=== PATIENT | male | born 1980 | race Caucasian/White ===

== ENCOUNTER 2017-03-25 09:41 | Emergency (ER) | payer OTHER ==
[~2017-03-25] VITALS: Ht 167.6 cm; Wt 89.6 kg
[~2017-03-25 09:41] MED LIST: APAP/HYDROCODON1 T13 PO; PRILOSEC40 MG PO; ZOC20 PO; ZOFRAN ODT8 MG PO
[2017-03-25 10:22] VITALS: BP 109/82
== END 2017-03-25 11:46 | disposition left against medical advice (07) ==
LOC: ED 09:41
DX: Z53.21 Procedure and treatment not carried out due to patient leaving prior to being seen by health care provider (principal)

== ENCOUNTER 2017-04-03 06:24 | Emergency (ER) | payer OTHER ==
[~2017-04-03] VITALS: Ht 167.6 cm; Wt 89.3 kg
[2017-04-03 07:27] LABS: BASOPHIL % 0.5 % (0-2); PLATELET COUNT 232 x10^3mcL (130-400); RED CELL DISTRIBUTION WIDTH 13.3 % (11.5-14.5)
[2017-04-03 07:31] LABS: CALCIUM 8.9 mg/dL (8.5-10.1); CARBON DIOXIDE 25.6 mmol/L (21-32); CHLORIDE SERUM 106 mmol/L (98-107); CREATININE SERUM 0.8 mg/dL (0.7-1.3); GFR1 > 60 mL/min; GLUCOSE SERUM 100 mg/dL (74-106); SODIUM SERUM 141 mmol/L (136-145)
[2017-04-03 07:35] LABS: ALBUMIN 3.8 g/dL (3.4-5.0); ALKALINE PHOSPHATASE 92 U/L (46-116); ALT/SGPT 30 U/L (16-63); AMYLASE 51 U/L (25-115); AST/SGOT 12 U/L (15-37); BILIRUBIN TOTAL 0.42 mg/dL (0.20-1.00); LIPASE 210 IU/L (73-393); TOTAL PROTEIN, SERUM 7.4 g/dL (6.4-8.2)
[2017-04-03 07:52] LABS: microscopic required? YES; urine erythrocyte 1+ (NEGATIVE)
[2017-04-03 10:53] VITALS: BP 104/63
== END 2017-04-03 10:53 | disposition home or self-care (01) ==
LOC: ED 06:24
PROVIDERS: Emergency Medicine
DX: R10.11 Right upper quadrant pain (principal); K64.4 Residual hemorrhoidal skin tags; Z87.19 Personal history of other diseases of the digestive system
CPT/HCPCS: J1170; J2405; Q0092

== ENCOUNTER 2017-11-13 06:42 | Emergency (ER) | payer OTHER ==
[~2017-11-13] VITALS: Ht 167.6 cm; Wt 82.7 kg
[2017-11-13 07:03] VITALS: Ht 167.6 cm; Wt 82.7 kg
[2017-11-13 08:56] VITALS: BP 138/93
== END 2017-11-13 08:56 | disposition home or self-care (01) ==
LOC: ED 06:42
DX: S46.912A Strain of unspecified muscle, fascia and tendon at shoulder and upper arm level, left arm, initial encounter (principal); Z87.19 Personal history of other diseases of the digestive system; V49.40XA Driver injured in collision with unspecified motor vehicles in traffic accident, initial encounter; Y93.I9 Activity, other involving external motion; Y92.410 Unspecified street and highway as the place of occurrence of the external cause; Y99.8 Other external cause status
CPT/HCPCS: J1885

== ENCOUNTER 2017-12-15 18:02 | Emergency (ER) | payer OTHER ==
[2017-12-15 19:03] LABS: BASOPHIL % 0.8 % (0-2); PLATELET COUNT 238 x10^3mcL (130-400); RED CELL DISTRIBUTION WIDTH 14.1 % (11.5-14.5)
[2017-12-15 19:08] LABS: CALCIUM 9.1 mg/dL (8.5-10.1); CARBON DIOXIDE 29.5 mmol/L (21-32); CHLORIDE SERUM 106 mmol/L (98-107); CREATININE SERUM 1.1 mg/dL (0.7-1.3); GFR1 > 60 mL/min; GLUCOSE SERUM 106 mg/dL (74-106); POTASSIUM SERUM 3.9 mmol/L (3.5-5.1); SODIUM SERUM 143 mmol/L (136-145)
[2017-12-15 19:12] LABS: ALBUMIN 3.8 g/dL (3.4-5.0); ALKALINE PHOSPHATASE 87 U/L (46-116); ALT/SGPT 37 U/L (16-63); AMYLASE 88 U/L (25-115); AST/SGOT 16 U/L (15-37); BILIRUBIN TOTAL 0.3 mg/dL (0.20-1.00); LIPASE 393 IU/L (73-393); TOTAL PROTEIN, SERUM 7.4 g/dL (6.4-8.2)
[2017-12-15 20:17] VITALS: BP 121/74
== END 2017-12-15 20:17 | disposition home or self-care (01) ==
LOC: ED 18:02
PROVIDERS: Emergency Medicine
DX: K50.90 Crohn's disease, unspecified, without complications (principal); Z87.19 Personal history of other diseases of the digestive system
CPT/HCPCS: 83880; J1885; J2930

== ENCOUNTER 2018-04-16 08:04 | Emergency (ER) | payer OTHER ==
[~2018-04-16] VITALS: Ht 167.6 cm; Wt 77.1 kg
[2018-04-16 08:10] VITALS: Ht 167.6 cm; Wt 77.1 kg
[2018-04-16 09:18] LABS: BASOPHIL % 0.5 % (0-2); PLATELET COUNT 254 x10^3mcL (130-400); RED CELL DISTRIBUTION WIDTH 13.3 % (11.5-14.5)
[2018-04-16 09:57] LABS: CALCIUM 9.2 mg/dL (8.5-10.1); CARBON DIOXIDE 29.9 mmol/L (21-32); CHLORIDE SERUM 107 mmol/L (98-107); CREATININE SERUM 0.9 mg/dL (0.7-1.3); GFR1 > 60 mL/min; GLUCOSE SERUM 87 mg/dL (74-106); SODIUM SERUM 142 mmol/L (136-145)
[2018-04-16 10:05] LABS: ALBUMIN 3.9 g/dL (3.4-5.0); ALKALINE PHOSPHATASE 95 U/L (46-116); ALT/SGPT 31 U/L (16-63); AST/SGOT 23 U/L (15-37); BILIRUBIN TOTAL 0.55 mg/dL (0.20-1.00); TOTAL PROTEIN, SERUM 7.5 g/dL (6.4-8.2)
[2018-04-16 10:48] VITALS: BP 99/55
== END 2018-04-16 10:48 | disposition home or self-care (01) ==
LOC: ED 08:04
PROVIDERS: Specialist
DX: K50.90 Crohn's disease, unspecified, without complications (principal)
CPT/HCPCS: J2405; J3490

== ENCOUNTER 2019-01-09 10:27 | Emergency (ER) | payer MEDICAID ==
[~2019-01-09] VITALS: Ht 167.6 cm; Wt 83.0 kg
[2019-01-09 10:41] VITALS: BP 100/59; Ht 167.6 cm; Wt 83.0 kg
[2019-01-09 11:22] LABS: BASOPHIL % 0.3 % (0-2); PLATELET COUNT 265 x10^3mcL (130-400); RED CELL DISTRIBUTION WIDTH 13.2 % (11.5-14.5)
[2019-01-09 11:29] LABS: CALCIUM 9.6 mg/dL (8.5-10.1); CARBON DIOXIDE 29.3 mmol/L (21-32); CHLORIDE SERUM 105 mmol/L (98-107); CREATININE SERUM 0.9 mg/dL (0.7-1.3); GFR1 > 60 mL/min; GLUCOSE SERUM 103 mg/dL (74-106); POTASSIUM SERUM 4.2 mmol/L (3.5-5.1); SODIUM SERUM 141 mmol/L (136-145)
[2019-01-09 11:35] LABS: ALBUMIN 4.1 g/dL (3.4-5.0); ALKALINE PHOSPHATASE 107 U/L (46-116); ALT/SGPT 68 U/L (16-63); AST/SGOT 42 U/L (15-37); BILIRUBIN TOTAL 0.43 mg/dL (0.20-1.00); LIPASE 548 IU/L (73-393)
[2019-01-09 11:41] LABS: TOTAL PROTEIN, SERUM 8.3 g/dL (6.4-8.2)
[2019-01-09 14:08] LABS: microscopic required? YES; urine erythrocyte TRACE (NEGATIVE)
== END 2019-01-09 14:33 | disposition home or self-care (01) ==
LOC: ED 10:27
PROVIDERS: Emergency Medicine
DX: R10.11 Right upper quadrant pain (principal); R10.13 Epigastric pain; R74.8 Abnormal levels of other serum enzymes; Z87.19 Personal history of other diseases of the digestive system
CPT/HCPCS: J2405; J2930; J3490; J7030

== ENCOUNTER 2019-01-10 10:09 | Emergency (ER) | payer MEDICAID ==
[~2019-01-10] VITALS: Ht 167.6 cm; Wt 83.9 kg
[2019-01-10 10:18] VITALS: BP 111/75; Ht 167.6 cm; Wt 83.9 kg
== END 2019-01-10 12:33 | disposition home or self-care (01) ==
LOC: ED 10:09
DX: R10.84 Generalized abdominal pain (principal); R11.2 Nausea with vomiting, unspecified; R19.7 Diarrhea, unspecified; Z87.19 Personal history of other diseases of the digestive system
CPT/HCPCS: J2930

== ENCOUNTER 2019-05-28 23:32 | Emergency (ER) | payer OTHER ==
[~2019-05-28] VITALS: Ht 165.1 cm; Wt 84.8 kg
[2019-05-29 00:06] VITALS: Ht 165.1 cm; Wt 84.8 kg
[2019-05-29 01:29] LABS: BASOPHIL % 0.8 % (0-2); PLATELET COUNT 236 x10^3mcL (130-400); RED CELL DISTRIBUTION WIDTH 13.6 % (11.5-14.5)
[2019-05-29 01:30] LABS: CALCIUM 9.6 mg/dL (8.5-10.1); CARBON DIOXIDE 24.3 mmol/L (21-32); CHLORIDE SERUM 106 mmol/L (98-107); GFR1 > 60 mL/min; GLUCOSE SERUM 99 mg/dL (74-106); POTASSIUM SERUM 3.7 mmol/L (3.5-5.1); SODIUM SERUM 143 mmol/L (136-145)
[2019-05-29 01:34] LABS: ALBUMIN 3.7 g/dL (3.4-5.0); ALKALINE PHOSPHATASE 90 U/L (46-116); ALT/SGPT 43 U/L (16-63); AST/SGOT 22 U/L (15-37); BILIRUBIN TOTAL 0.25 mg/dL (0.20-1.00); LIPASE 282 IU/L (73-393); TOTAL PROTEIN, SERUM 7.4 g/dL (6.4-8.2)
[2019-05-29 02:25] LABS: UA SPECIFIC GRAVITY >=1.030 (1.005-1.035); microscopic required? YES; urine erythrocyte TRACE (NEGATIVE)
[2019-05-29 04:22] VITALS: BP 120/85
== END 2019-05-29 04:22 | disposition home or self-care (01) ==
LOC: ED 23:32
PROVIDERS: Emergency Medicine
DX: R10.9 Unspecified abdominal pain (principal); R19.7 Diarrhea, unspecified
CPT/HCPCS: J1885; J7030; Q0092

== ENCOUNTER 2021-02-02 08:09 | Day surgery (SDC) | payer OTHER, SELFPAY ==
[2021-01-27 11:01] LABS: BASOPHIL % 1.4 % (0.2-1.5); PLATELET COUNT 251 x10^3mcL (152-348)
[2021-01-27 11:03] LABS: RED CELL DISTRIBUTION WIDTH 14.8 % (12.1-16.2)
[2021-01-27 11:35] LABS: ALBUMIN 3.6 g/dL (3.4-5.0); ALKALINE PHOSPHATASE 91 U/L (46-116); ALT/SGPT 41 U/L (16-63); AST/SGOT 23 U/L (15-37); BILIRUBIN TOTAL 0.29 mg/dL (0.20-1.00); CALCIUM 8.4 mg/dL (8.5-10.1); CARBON DIOXIDE 26.9 mmol/L (21-32); CHLORIDE SERUM 106 mmol/L (98-107); GFR1 > 60 mL/min; GLUCOSE SERUM 115 mg/dL (74-106); POTASSIUM SERUM 3.9 mmol/L (3.5-5.1); SODIUM SERUM 142 mmol/L (136-145)
[~2021-02-02] VITALS: Ht 167.6 cm; Wt 86.2 kg
[2021-02-02 08:45] VITALS: BP 114/81
[2021-02-02 15:30] VITALS: BP 132/77
== END 2021-02-02 15:05 | disposition home or self-care (01) ==
LOC: DS 08:09 → OR 10:30 → DS 15:05
PROVIDERS: ATTEND Surgery
DX: K64.4 Residual hemorrhoidal skin tags (principal); K64.8 Other hemorrhoids; E66.3 Overweight; Z68.30 Body mass index [BMI] 30.0-30.9, adult; Z20.822 Contact with and (suspected) exposure to COVID-19
CPT/HCPCS: J0690; J2175; J2250; J2405; J2704; J3010; J3490; J7120; U0003